=== PATIENT | male | born 1950 | race Caucasian/White ===

== ENCOUNTER 2023-08-25 16:39 | Emergency (ER) | payer MEDICARE, BC, SELFPAY ==
[2023-08-25 17:22] VITALS: BP 123/68; PULSE 93; RESP 26; TEMP 38.2; O2SAT 93; BMI 28.2
--- NOTE | 2023-08-25 17:44 | CRLHL7_ITS ---
For Patients: As a result of the Century Cures Act, medical imaging exams and procedure reports are released immediately into your electronic medical record. You may view this report before your referring provider. If you have questions, please contact your health care provider. INDICATION: Shortness of breath, fever, cough. TECHNIQUE: Portable AP chest. COMPARISON: None. FINDINGS: Right perihilar linear atelectasis. Left lung base opacity could be atelectasis or pneumonia. Chest otherwise negative. Dictated by Neptali Ricketts MD @ 08/25/2023 7:17:08 PM (Electronically Signed)
[2023-08-25 18:28] LABS: Basophils Percent Auto 0.4 % (0.0-3.0); Eosinophils Percent Auto 0.1 % (0.0-7.0); Hematocrit 39.6 % (37.0-53.0); Immature Granulocytes Pct Auto 0.4 %; Mean Corpuscular HGB Conc 33 gm/dL (32-36); Mean Corpuscular Hemoglobin 29 pg (26-34); Mean Corpuscular Volume 88 fL (80-100); Monocytes Percent Auto 8.9 % (0.0-11.0); Neutrophils Percent Auto 83.2 % (42.0-72.0); Platelet Count* 245 K/uL (140-440); RDW Coefficient of Variation % 15.9 % (11.5-15.5); Red Blood Count 4.51 m/uL (4.30-5.90); White Blood Count* 14.28 K/uL (4.50-11.00)
--- NOTE | 2023-08-25 18:30 | ED.GENADULT ---
HPI - General Adult General Date Seen: 08/25/23 Chief complaint: Fever Stated complaint: Short of breath Time Seen by Provider: 08/25/23 17:34 Source: patient Mode of arrival: ambulatory Limitations: no limitations History of Present Illness HPI narrative: Patient is a 73-year-old male here for evaluation of shortness of breath, cough, fever. He says symptoms originally started 2 days ago on Saturday with a sore throat and fatigue. He says he just kind of laid around yesterday but this morning thought he was feeling better. By noon though he developed a fever, he has had a cough and feels like his breathing is getting harder. He has not had chest pain. He quit smoking 6 and half years ago, says somebody mention something once about COPD but he does not do anything about it, does not take any medications. He does not drink. Lives independently. Took a COVID test at home and that was negative. Related Data Home Medications Medication Instructions Recorded Confirmed amlodipine 5 mg tablet 5 mg PO QDAY 06/12/22 02/27/23 apixaban 5 mg tablet (Eliquis) 5 mg PO BID 06/12/22 02/27/23 furosemide 40 mg tablet (Lasix) 40 mg PO QDAY 06/12/22 02/27/23 amiodarone 200 mg tablet 200 mg PO 07/05/22 02/27/23 diclofenac sodium 1 % topical gel g topical 02/27/23 02/27/23 doxycycline hyclate 100 mg tablet 100 mg PO BID 02/27/23 02/27/23 iron,carbonyl 65 mg-vitamin C 125 1 tab PO QDAY 02/27/23 02/27/23 mg tablet,delayed release (Vitron-C) prednisone 20 mg tablet 20 mg PO BID 02/27/23 02/27/23 Previous Rx's Medication Instructions Recorded benzonatate 100 mg capsule 100 mg PO TID PRN cough #30 caps 08/04/22 albuterol sulfate 90 mcg/actuation 2 puff inhalation Q4-6H PRN 02/09/23 aerosol inhaler shortness of breath or wheezing #1 packet Allergies Allergy/AdvReac Type Severity Reaction Status Date / Time No Known Drug Allergies Allergy Verified 02/27/23 15:51 Review of Systems Status of ROS: Reports: 10 or more systems reviewed and unremarkable except as noted in History and below [facility] Medical History COPD exacerbation ?J44.1 - Chronic obstructive pulmonary disease with (acute) exacerbation (ICD-10) Social History Smoking Status: Former smoker Do you use any of these nicotine containing products: None Second hand tobacco smoke exposure: No How often do you have a drink containing alcohol: never How often do you have six or more drinks on one occasion: Never AUDIT-C Alcohol total score: 0 Non-prescribed substance use: denies use service: No Exam Narrative: Exam Narrative: Vital signs as noted above. In general, an alert, well-appearing patient. Head: Normocephalic, atraumatic. Eyes: Pupils are equal reactive. Extraocular movements are full. Conjunctivae are normal. ENT: Mucous membranes are moist. Throat is normal. Neck: Supple without lymphadenopathy. Heart: Regular rate and rhythm. No murmur or rub. Lungs: No wheezing, good air movement bilaterally. Some coarse crackles are noted particularly in the left base. Abdomen: Soft and nontender. No organomegaly. Extremities: Well perfused. No edema. No calf tenderness. Pulses intact. Neurologic: Patient is alert and oriented to person and place. Speech is fluent. Face is symmetric. Moves all extremities equally. Affect: Normal. Skin: Warm and dry. Well perfused. Const: Vital Signs, click to edit/add: Vital Signs - 24 hr 08/25/23 17:22 08/25/23 19:30 Temperature 100.7 F H Pulse Rate [Pulse Oximeter] 93 73 Respiratory Rate 26 H 18 Blood Pressure [Ri ght Upper Arm] 123/68 137/83 Pulse Oximetry 93 96 Oxygen Delivery Me thod Room Air Documenting provider has reviewed patient's vital signs: yes Course Course ED Course: Patient is mildly tachypneic, O2 sats are 93% on room air. He does have a diagnosis listed of COPD exacerbation, I do not hear significant bronchospasm today. He does have a temp of a 100.7? here. I have repeated a COVID test but will also do a chest x-ray to evaluate for pneumonia, as well as blood work and a urine to look for signs of other bacterial infection, sepsis etcetera. Patient had a chest x-ray, appears to have some infiltrate at the left base to me. Final radiology read as follows:COMPARISON: None. FINDINGS: Right perihilar linear atelectasis. Left lung base opacity could be atelectasis or pneumonia. Chest otherwise negative. Overall, clinical picture here supports the diagnosis of pneumonia. He has crackles at the left base, white blood cell count is elevated at 14 with a left shift of 83% neutrophils. His CRP is elevated at 8. D-dimer was negative at less than 0.27. Metabolic panel shows mild hyponatremia with a sodium of 133, potassium of 3.3. Lactate is normal at 1.1. UA is negative. COVID here was negative as well. Patient is not significantly hypoxic, breathing easily. I think it is reasonable to send him home on oral antibiotics though I discussed that if he is worsening rather than improving he should come back. For high fevers, chills, vomiting, worsening difficulty breathing rate etcetera return to the emergency department. If not improving over the next few days, follow up with primary care. Doxycycline from [facility] prescribed. Vital Signs Vital signs: Initial Vital Signs Temperature 100.7 F H 08/25/23 17:22 Temperature Source Temporal Artery Scan 08/25/23 17:22 Pulse Rate 93 08/25/23 17:22 Pulse Rhythm Regular 08/25/23 17:22 Respiratory Rate 26 H 08/25/23 17:22 Blood Pressure 123/68 08/25/23 17:22 Blood Pressure Mean 86 08/25/23 17:22 Blood Pressure Position Sitting 08/25/23 17:22 Pulse Oximetry 93 08/25/23 17:22 Oxygen Delivery Method Room Air 08/25/23 17:22 Vital Signs Temperature 100.7 F H 08/25/23 17:22 Pulse Rate 93 08/25/23 17:22 Respiratory Rate 26 H 08/25/23 17:22 Blood Pressure 123/68 08/25/23 17:22 Pulse Oximetry 93 08/25/23 17:22 Oxygen Delivery Method Room Air 08/25/23 17:22 Temperature 100.7 F H 08/25/23 17:22 Pulse Rate 73 08/25/23 19:30 Respiratory Rate 18 08/25/23 19:30 Blood Pressure 137/83 08/25/23 19:30 Pulse Oximetry 96 08/25/23 19:30 Oxygen Delivery Method Room Air 08/25/23 17:22 Medical Decision Making Lab Data Labs: Lab Results 08/25/23 08/25/23 08/25/23 Range/Units 17:30 18:09 18:21 WBC 14.28 H (4.50-11.00) K/uL RBC 4.51 (4.30-5.90) m/uL Hgb 13.0 L (13.5-17.5) gm/dL Hct 39.6 (37.0-53.0) % MCV 88 (80-100) fL MCH 29 (26-34) pg MCHC 33 (32-36) gm/dL RDW Coeff of Justino 15.9 H (11.5-15.5) % Plt Count 245 (140-440) K/uL Neut % (Auto) 83.2 H (42.0-72.0) % Lymph % (Auto) 7.0 L (20-44) % Pickett % (Auto) 8.9 (0.0-11.0) % Eos % (Auto) 0.1 (0.0-7.0) % Baso % (Auto) 0.4 (0.0-3.0) % Neut # (Auto) 11.90 H (1.7-7.0) K/uL Lymph # (Auto) 1.00 (0.90-2.90) K/uL Pickett # (Auto) 1.30 H (0.00-0.90) K/UL Eos # (Auto) 0.00 (0.00-0.50) K/uL Baso # (Auto) 0.10 (0.00-0.30) K/uL Abs Immat Gran (auto) 0.10 (0.00-0.30) K/uL Imm/Tot Granulo (auto) 0.4 % D-Dimer Quant (PE/DVT) < 0.27 (0.00-0.50) ug/ml Sodium 133 L (135-149) mmol/L Potassium 3.3 L (3.6-5.1) mmol/L Chloride 102 (96-114) mmol/L Carbon Dioxide 24 (20-32) mmol/L Anion Gap 7 (7-15) mEq/L BUN 21 (7-30) mg/dL Creatinine 1.2 (0.5-1.5) mg/dL Estimated Creat Clear 63.74 Estimated GFR 64 ml/min Glucose 153 H (60-115) mg/dL Lactate (0.5-1.9) mmol/L Calcium 8.9 (8.4-10.6) mg/dL Total Bilirubin 0.7 (0.1-1.5) mg/dL Direct Bilirubin 0.0 (0.0-0.5) mg/dL AST 37 H (12-35) U/L ALT 18 (4-50) U/L Alkaline Phosphatase 80 (40-150) U/L C-Reactive Protein 8.2 H (0.5-1.0) mg/dL Total Protein 7.1 (6.0-8.3) g/dL Albumin 4.0 (3.3-5.0) g/dL Urine Color (Yellow) Urine Appearance (Clear) Urine pH (5.0-8.5) Ur Specific [place] (1.000-1.030) Urine Protein (Negative) Urine Glucose (UA) (Negative) Urine Ketones (Negative) Urine Blood (Negative) Urine Nitrite (Negative) Urine Bilirubin (Negative) Urine Urobilinogen (0.2-1.0) Ur Leukocyte Esterase (Negative) Urine RBC (0-2) Urine WBC (0-5) Ur Squamous Epith Cells (None-Few) Urine Bacteria (None) SARS-CoV-2 (PCR) Negative SARS-CoV-2 (Negative) Influenza Type A (PCR) Negative PCR FLU A (Negative) Influenza Type B (PCR) Negative PCR FLU B (Negative) RSV (PCR) Negative PCR RSV (Negative) 08/25/23 08/25/23 Range/Units 19:27 19:33 WBC (4.50-11.00) K/uL RBC (4.30-5.90) m/uL Hgb (13.5-17.5) gm/dL Hct (37.0-53.0) % MCV (80-100) fL MCH (26-34) pg MCHC (32-36) gm/dL RDW Coeff of Justino (11.5-15.5) % Plt Count (140-440) K/uL Neut % (Auto) (42.0-72.0) % Lymph % (Auto) (20-44) % Pickett % (Auto) (0.0-11.0) % Eos % (Auto) (0.0-7.0) % Baso % (Auto) (0.0-3.0) % Neut # (Auto) (1.7-7.0) K/uL Lymph # (Auto) (0.90-2.90) K/uL Pickett # (Auto) (0.00-0.90) K/UL Eos # (Auto) (0.00-0.50) K/uL Baso # (Auto) (0.00-0.30) K/uL Abs Immat Gran (auto) (0.00-0.30) K/uL Imm/Tot Granulo (auto) % D-Dimer Quant (PE/DVT) (0.00-0.50) ug/ml Sodium (135-149) mmol/L Potassium (3.6-5.1) mmol/L Chloride (96-114) mmol/L Carbon Dioxide (20-32) mmol/L Anion Gap (7-15) mEq/L BUN (7-30) mg/dL Creatinine (0.5-1.5) mg/dL Estimated Creat Clear Estimated GFR ml/min Glucose (60-115) mg/dL Lactate 1.1 (0.5-1.9) mmol/L Calcium (8.4-10.6) mg/dL Total Bilirubin (0.1-1.5) mg/dL Direct Bilirubin (0.0-0.5) mg/dL AST (12-35) U/L ALT (4-50) U/L Alkaline Phosphatase (40-150) U/L C-Reactive Protein (0.5-1.0) mg/dL Total Protein (6.0-8.3) g/dL Albumin (3.3-5.0) g/dL Urine Color Yellow (Yellow) Urine Appearance Clear (Clear) Urine pH 5.5 (5.0-8.5) Ur Specific [place] <= 1.005 (1.000-1.030) Urine Protein Negative (Negative) Urine Glucose (UA) Trace A (Negative) Urine Ketones Negative (Negative) Urine Blood Trace-lysed A (Negative) Urine Nitrite Negative (Negative) Urine Bilirubin Negative (Negative) Urine Urobilinogen 0.2 (0.2-1.0) Ur Leukocyte Esterase Negative (Negative) Urine RBC 0-2 (0-2) Urine WBC 0-2 (0-5) Ur Squamous Epith Cells Few (None-Few) Urine Bacteria Few A (None) SARS-CoV-2 (PCR) (Negative) Influenza Type A (PCR) (Negative) Influenza Type B (PCR) (Negative) RSV (PCR) (Negative) Discharge Plan Discharge Clinical Impression: Pneumonia Patient Disposition: Home, Self-Care Condition: Stable Instructions: Pneumonia (ED) Additional Instructions: Antibiotic as prescribed. If you are feeling worse, have new symptoms such as chills, vomiting, significant respiratory difficulties return to the emergency department at any time. Follow-up with your primary doctor if you are not improved over the next few days. Prescriptions: No Action amiodarone 200 mg tablet 200 mg PO Patient Comments: TAKE 1 TABLET (200 MG TOTAL) BY MOUTH DAILY. benzonatate 100 mg capsule 100 mg PO TID PRN (Reason: cough) Qty: 30 0RF albuterol sulfate 90 mcg/actuation HFA aerosol inhaler 2 puff inhalation Q4-6H PRN (Reason: shortness of breath or wheezing) Qty: 1 0RF Eliquis 5 mg tablet 5 mg PO BID furosemide [Lasix] 40 mg tablet 40 mg PO QDAY amlodipine 5 mg tablet 5 mg PO QDAY diclofenac sodium 1 % gel topical Vitron-C 65 mg iron- 125 mg tablet,delayed release (DR/EC) 1 tab PO QDAY doxycycline hyclate 100 mg tablet 100 mg PO BID prednisone 20 mg tablet 20 mg PO BID Follow Up/Referrals: Ayaka De La Paz MD [Primary Care Provider] - Stand Alone Forms: [facility] [employer] Info Instructions
[2023-08-25 18:32] LABS: Slide Review Reflex No
[2023-08-25 18:34] LABS: Chloride* 102 mmol/L (96-114); Potassium* 3.3 mmol/L (3.6-5.1); Sodium* 133 mmol/L (135-149)
[2023-08-25 18:36] LABS: PCR FLU A Negative PCR FLU A (Negative); PCR FLU B Negative PCR FLU B (Negative); PCR RSV Negative PCR RSV (Negative)
[2023-08-25 18:37] LABS: Creatinine* 1.2 mg/dL (0.5-1.5); Est. Creatinine Clearance* 63.74; Estimated Glomerular Filt Rate 64 ml/min
[2023-08-25 18:38] LABS: Alkaline Phosphatase* 80 U/L (40-150); Anion Gap 7 mEq/L (7-15); Aspartate Amino Transferase* 37 U/L (12-35); Bilirubin Total* 0.7 mg/dL (0.1-1.5); Blood Urea Nitrogen* 21 mg/dL (7-30); Calcium* 8.9 mg/dL (8.4-10.6); Carbon Dioxide* 24 mmol/L (20-32); Glucose* 153 mg/dL (60-115); Total Protein* 7.1 g/dL (6.0-8.3)
[2023-08-25 18:38] LABS: SARS PCR* Negative SARS-CoV-2 (Negative)
[2023-08-25 18:39] LABS: Alanine Aminotransferase* 18 U/L (4-50)
[2023-08-25 18:40] LABS: C Reactive Protein* 8.2 mg/dL (0.5-1.0)
[2023-08-25 18:45] LABS: D Dimer Quantitative* < 0.27 ug/ml (0.00-0.50)
[2023-08-25 19:30] VITALS: BP 137/83; PULSE 73; RESP 18; O2SAT 96
[2023-08-25 19:36] LABS: Lactate Sepsis w/Reflex* 1.1 mmol/L (0.5-1.9)
[2023-08-25 19:39] LABS: Appearance Urine Clear (Clear); Bilirubin Urine Negative (Negative); Blood Urine Trace-lysed (Negative); Color Urine Yellow (Yellow); Glucose Urine Trace (Negative); Ketones Urine Negative (Negative); Leukocyte Esterase Urine Negative (Negative); Nitrite Urine Negative (Negative); Protein Urine Negative (Negative); Specific Gravity Urine <= 1.005 (1.000-1.030); Urobilinogen Urine 0.2 (0.2-1.0); pH Urine 5.5 (5.0-8.5)
[2023-08-25 19:59] LABS: Bacteria Urine Few; RBC Urine 0-2 (0-2); Squamous Epithelial Cell Urine Few (None-Few); WBC Urine 0-2 (0-5)
== END 2023-08-25 20:23 | disposition home or self-care (01) ==
PROVIDERS: Emergency Provider Emergency Medicine; PCP Family Medicine
DX: J18.9 Pneumonia, unspecified organism (principal)
CPT/HCPCS: 36415; 71045; 80048; 80076; 81001; 83605; 85025; 85379; 86140; 87040; 87086; 87631; 99283; 99284

== ENCOUNTER 2024-01-22 13:21 | Emergency (ER) | payer MEDICARE, BC, SELFPAY ==
[2024-01-22] VITALS (21 sets, daily range): BP systolic 107–149; BP diastolic 78–108; PULSE 61–66; RESP 17; TEMP 36.1; O2SAT 90–100; BMI 25.0
--- NOTE | 2024-01-22 13:35 | CT_ITS ---
Patient: JAY URBINA Facility:?[facility] R[facility] Patient ID:?[id number] Site Patient ID:?[id number]. Site :?1950 Study:?CT-Head W/O STROKE PROTOCOL-01/22/2024 1:48:48 PM Ordering Physician:RASHAD Final Report: INDICATION: Severe nausea and vomiting TECHNIQUE: CT head without contrast. COMPARISON: None. FINDINGS: Examination is mildly degraded by patient motion. CSF spaces: Within normal limits for age. Brain parenchyma: The gallardo-white differentiation is normal. No sign of mass, hemorrhage, or midline shift. Skull base and calvarium: The visualized paranasal sinuses and mastoid air cells demonstrate no acute or significant findings. The visualized orbits are grossly unremarkable. No skull fractures. Atherosclerosis. IMPRESSION: Exam is mildly degraded by patient motion without evidence of acute intracranial bleed or mass effect. Please note that all CT scans at this facility use dose modulation, iterative reconstruction, and/or weight-based dosing when appropriate to reduce radiation dose to as low as reasonably achievable. Dictated by Fadi Felton MD @ 01/22/2024 1:56:56 PM ----- ADDENDUM ----- Results confirmed with Dr. Brown at 13:58 on 01/22/2024. Dictated by Fadi Felton MD @ Jan 22 2024 1:59PM Signed by:?Fadi Felton MD @01/22/2024 1:56:56 PM (Electronic Signature)
--- NOTE | 2024-01-22 13:39 | CT_ITS ---
Patient: JAY URBINA Facility:?[facility] R[facility] Patient ID:?[id number] Site Patient ID:?[id number]. Site :?1950 Study:?CT-Neck Angio W/ 95CC ISOVUE 370 STROKE PROTOCOL-01/22/2024 1:55:47 PM Ordering Physician:RASHAD Final Report: INDICATION: Acute stroke, severe nausea and vomiting. TECHNIQUE: CTA neck with contrast bolus tracking, 3D angiographic rendering using maximum intensity projection (MIP) and images permanently archived. FINDINGS: There is carotid atherosclerosis. There is no significant carotid artery stenosis or dissection. There is no significant vertebral artery stenosis or dissection. The soft tissues of the neck are within normal limits. The cervical spine is in normal alignment. Degenerative changes are noted in the cervical spine. Emphysematous changes are present in the lung apices. IMPRESSION: No significant carotid or vertebral artery stenosis or dissection. Please note that all CT scans at this facility use dose modulation, iterative reconstruction, and/or weight-based dosing when appropriate to reduce radiation dose to as low as reasonably achievable. Dictated by Juanjose Gayle MD @ 01/22/2024 3:14:31 PM Signed by:?Juanjose Gayle MD @01/22/2024 3:14:31 PM (Electronic Signature)
--- NOTE | 2024-01-22 13:39 | CT_ITS ---
Patient: JAY URBINA Facility:?[facility] R[facility] Patient ID:?[id number] Site Patient ID:?[id number]. Site :?1950 Study:?CT-Head Angio W/ 95CC ISOVUE 370 STROKE PROTOCOL-01/22/2024 1:55:17 PM Ordering Physician:RASHAD Final Report: INDICATION: Acute stroke, severe nausea and vomiting. TECHNIQUE: CTA head with contrast bolus tracking, 3D angiographic rendering using maximum intensity projection (MIP) and images permanently archived. FINDINGS: There is scattered intracranial atherosclerotic disease. There is normal opacification of the intracranial vasculature. There is no large vessel occlusion. No aneurysm is identified. IMPRESSION: No large vessel occlusion. Please note that all CT scans at this facility use dose modulation, iterative reconstruction, and/or weight-based dosing when appropriate to reduce radiation dose to as low as reasonably achievable. Dictated by Juanjose Gayle MD @ 01/22/2024 3:13:19 PM Signed by:?Juanjose Gayle MD @01/22/2024 3:13:19 PM (Electronic Signature)
[2024-01-22 13:44] LABS: Basophils Absolute Auto 0.01 K/uL (0.00-0.30); Basophils Percent Auto 0.1 % (0.0-3.0); Eosinophils Absolute Auto 0.06 K/uL (0.00-0.50); Eosinophils Percent Auto 0.6 % (0.0-7.0); Hematocrit 43.4 % (37.0-53.0); Hemoglobin* 14.3 gm/dL (13.5-17.5); Immature Granulocytes Abs Auto 0.04 K/uL (0.00-0.30); Immature Granulocytes Pct Auto 0.4 %; Lymphocytes Percent Auto 11.5 % (20-44); Mean Corpuscular HGB Conc 33 gm/dL (32-36); Mean Corpuscular Hemoglobin 29 pg (26-34); Mean Corpuscular Volume 87 fL (80-100); Monocytes Percent Auto 5.6 % (0.0-11.0); Neutrophils Percent Auto 81.8 % (42.0-72.0); Platelet Count* 263 K/uL (140-440); RDW Coefficient of Variation % 14.3 % (11.5-15.5); Red Blood Count 4.97 m/uL (4.30-5.90); White Blood Count* 10.71 K/uL (4.50-11.00)
[2024-01-22 13:49] LABS: Slide Review Reflex No
[2024-01-22 14:00] LABS: Troponin, Point-of-Care* 0.01 ng/ml (0.01-0.04)
[2024-01-22] MEDS: ONDANSETRON 2 MG/ML inj 4 MG IVP (14:21)
--- NOTE | 2024-01-22 14:21 | ED_ITS ---
HPI - General Adult General Date Seen: 01/22/24 Chief complaint: Weakness Stated complaint: shortness of breath, chest pain Time Seen by Provider: 01/22/24 13:27 Source: patient Mode of arrival: wheelchair Limitations: no limitations History of Present Illness HPI narrative: Patient is a 73-year-old male presenting to emergency department for severe shortness of breath, nausea, dizziness. She is here with his . He is having difficulty speak to being very nauseated and vomiting. She states that he has had dizziness in the past and was told he had vertigo. He had the Neena-Hallpike maneuver done which resolved his symptoms. They were not nearly as severe as they are today. She states he told her he has been feeling off all day but about an hour prior to arrival he was getting worsening dizziness then finally stated they need to come to the emergency department. Patient tells me he feels like the entire room has been spinning for the past hour any feels like he is falling to the right side. Denies weakness or numbness anywhere. Does have a history of AFib in as on Eliquis. While nursing staff was cleaning a IV and he had a large amount of emesis feeling roughly 2 emesis bags. Denies abdominal pain, chest pain, headache, diarrhea, constipation. Related Data Home Medications Medication Instructions Recorded Confirmed amlodipine 5 mg tablet 5 mg PO QDAY 06/12/22 02/27/23 apixaban 5 mg tablet (Eliquis) 5 mg PO BID 06/12/22 02/27/23 furosemide 40 mg tablet (Lasix) 40 mg PO QDAY 06/12/22 02/27/23 amiodarone 200 mg tablet 200 mg PO 07/05/22 02/27/23 diclofenac sodium 1 % topical gel g topical 02/27/23 02/27/23 doxycycline hyclate 100 mg tablet 100 mg PO BID 02/27/23 02/27/23 iron,carbonyl 65 mg-vitamin C 125 1 tab PO QDAY 02/27/23 02/27/23 mg tablet,delayed release (Vitron-C) prednisone 20 mg tablet 20 mg PO BID 02/27/23 02/27/23 Previous Rx's Medication Instructions Recorded benzonatate 100 mg capsule 100 mg PO TID PRN cough #30 caps 08/04/22 albuterol sulfate 90 mcg/actuation 2 puff inhalation Q4-6H PRN 02/09/23 aerosol inhaler shortness of breath or wheezing #1 packet meclizine 25 mg tablet 25 mg PO QID #40 tabs 01/22/24 ondansetron 4 mg disintegrating 4 mg PO Q6H #20 tabs 01/22/24 tablet Allergies Allergy/AdvReac Type Severity Reaction Status Date / Time No Known Drug Allergies Allergy Verified 01/22/24 13:57 Review of Systems Status of ROS: Reports: 10 or more systems reviewed and unremarkable except as noted in History and below [facility] Medical History COPD exacerbation ?J44.1 - Chronic obstructive pulmonary disease with (acute) exacerbation (ICD-10) Social History Smoking Status: Former smoker Do you use any of these nicotine containing products: None Second hand tobacco smoke exposure: No How often do you have a drink containing alcohol: never How often do you have six or more drinks on one occasion: Never AUDIT-C Alcohol total score: 0 Non-prescribed substance use: denies use service: No Exam Narrative: Exam Narrative: Const: Well-nourished, Well-developed, in mild distress, Eyes: PERRL, no conjunctival injection, and symmetrical lids HENT: Atraumatic external nose and ears. Moist mucous membranes. Neck: Symmetric, trachea midline, No thyromegaly. CVS: RRR, No murmurs or gallops. Peripheral pulses 2+ and equal in all extremities RESP: Unlabored respiratory effort. Clear to auscultation bilaterally. GI: Nontender/Nondistended, No rebound or guarding. MSK:Extremities w/o deformity, Normal Active ROM Skin: Warm, Dry. No rashes or lesions. Neuro: Normal Muscle tone, Cranial nerves 2-12 grossly intact, normal [id number], normal [id number], normal gait, normal strength 5/5 upper lower extremities bilaterally, normal sensation upper and lower extremities bilaterally, normal rapid alternating movements. Psych: Awake, Alert, & Oriented x3. Appropriate mood and affect. Of note full physical exam was completed after patient returned from CT and symptoms were improving Const: Vital Signs, click to edit/add: Vital Signs - 24 hr 01/22/24 13:22 01/22/24 13:32 01/22/24 13:37 Temperature 97.0 F L Pulse Rate Respiratory Rate Blood Pressure 123/78 Blood Pressure [Le ft Upper Arm] 107/78 Pulse Oximetry 96 Oxygen Delivery Me thod Room Air 01/22/24 14:00 01/22/24 14:02 01/22/24 14:12 Temperature Pulse Rate Respiratory Rate Blood Pressure 134/100 H 124/94 H 135/79 Blood Pressure [Le ft Upper Arm] Pulse Oximetry Oxygen Delivery Me thod 01/22/24 14:22 01/22/24 14:24 01/22/24 14:30 Temperature Pulse Rate 64 65 64 Respiratory Rate Blood Pressure 132/80 Blood Pressure [Le ft Upper Arm] Pulse Oximetry 100 98 91 Oxygen Delivery Me thod 01/22/24 14:31 01/22/24 14:41 01/22/24 14:45 Temperature Pulse Rate 65 64 63 Respiratory Rate Blood Pressure 138/91 H 139/82 Blood Pressure [Le ft Upper Arm] Pulse Oximetry 100 98 100 Oxygen Delivery Me thod 01/22/24 14:52 01/22/24 14:53 01/22/24 15:00 Temperature Pulse Rate 64 62 62 Respiratory Rate Blood Pressure 147/94 H Blood Pressure [Le ft Upper Arm] Pulse Oximetry 100 98 100 Oxygen Delivery Me thod 01/22/24 15:02 01/22/24 15:02 01/22/24 15:03 Temperature Pulse Rate 61 63 Respiratory Rate 17 Blood Pressure 149/108 H Blood Pressure [Le ft Upper Arm] Pulse Oximetry 100 100 Oxygen Delivery Me thod 01/22/24 16:02 Temperature Pulse Rate Respiratory Rate Blood Pressure Blood Pressure [Le ft Upper Arm] Pulse Oximetry 90 Oxygen Delivery Me thod Course Vital Signs Vital signs: Initial Vital Signs Temperature 97.0 F L 01/22/24 13:22 Temperature Source Temporal Artery Scan 01/22/24 13:22 Blood Pressure 107/78 01/22/24 13:22 Blood Pressure Mean 87 01/22/24 13:22 Blood Pressure Position Sitting 01/22/24 13:22 Oxygen Delivery Method Room Air 01/22/24 13:22 Vital Signs Temperature 97.0 F L 01/22/24 13:22 Blood Pressure 107/78 01/22/24 13:22 Oxygen Delivery Method Room Air 01/22/24 13:22 Temperature 97.0 F L 01/22/24 13:22 Pulse Rate 63 01/22/24 15:03 Respiratory Rate 17 01/22/24 15:02 Blood Pressure 149/108 H 01/22/24 15:02 Pulse Oximetry 90 01/22/24 16:02 Oxygen Delivery Method Room Air 01/22/24 13:22 Medications Administered Medications: Discontinued Medications Generic Name Dose Route Start Last Admin Trade Name Foster PRBarb Reason Stop Dose Admin Diazepam 2.5 mg 01/22/24 14:45 01/22/24 15:08 Diazepam 5 Mg/Ml Inj IV 01/22/24 14:46 2.5 mg ONCE ONE Administration Lactated Ringer's 1,000 mls @ 1,000 mls/hr 01/22/24 13:35 01/22/24 16:16 Lactated Ringers 1000 Ml IV 01/22/24 14:34 Infused .Q1H ONE Infusion Meclizine HCl 25 mg 01/22/24 14:12 01/22/24 14:28 Meclizine Hcl 25 Mg Tablet PO 01/22/24 14:13 25 mg ONCE ONE Administration Ondansetron HCl 4 mg 01/22/24 13:35 01/22/24 14:21 Ondansetron 2 Mg/Ml Inj IVP 01/22/24 13:36 4 mg ONCE ONE Administration Medical Decision Making MDM Narrative Medical decision making narrative: Patient is a 73-year-old male presenting for severe dizziness and nausea. He is also feeling very short of breath he states. While they were getting an IV placed he had 2 large emesis. After the bee got unchanged with quickly brought him to CT. While this could very well just be BPPV considering the severe nature of it a code stroke was called. I spoke to Dr. Brown and she is in agreement with the CT and also recommends doing a CTA head and neck right away also. This was ordered. Will also order co aches, CMP, COVID/flu/RSV, CBC, troponin, lipase, magnesium. Will also give 1 L of lactated Ringer's due to home she vomited. By time patient came back from CT he was feeling much better. States the dizziness is improving. Did receive 1 dose of Zofran. Is still having some mild dizziness but it states is nothing compared to when he initially came in. And his NIH stroke scale at this time is 0. Lab work returned showing no concerning abnormalities. Initial potassium slightly low at 3.3 but this is very unlikely to be causing his symptoms. Troponin shows no concerning abnormalities. EKG shows possible prolonged QT but I believe this read is due to the artifact seen in the 1st part of the EKG as the rest of EKG is not appear prolonged. He was given a dose of meclizine. I did speak to Dr. Brown again she is agreeable that we should do an MRI which was performed. She states that the MRI looks normal from her standpoint she is safe for discharge. MRI returned showing no concerning abnormalities. He is now asymptomatic and feels good enough to be discharged home. I will give him prescription for meclizine since he is going on a 10 day trip. I will give him 10 days worth. I explained to him how to take it and he states he understands. He will be discharged home. Of note patient's initial EKG did show concerns for prolonged QT on the read but this appeared to be all secondary to artifact and initial leads as I do not see the prolonged QT in the entire EKG. Repeat EKG was done prior to discharge that no longer shows this prolonged QT and he is safe to be [facility]. He was able to walk around without issue Lab Data Labs: Lab Results 01/22/24 01/22/24 01/22/24 Range/Units 13:33 13:35 13:58 WBC 10.71 (4.50-11.00) K/uL RBC 4.97 (4.30-5.90) m/uL Hgb 14.3 (13.5-17.5) gm/dL Hct 43.4 (37.0-53.0) % MCV 87 (80-100) fL MCH 29 (26-34) pg MCHC 33 (32-36) gm/dL RDW Coeff of Justino 14.3 (11.5-15.5) % Plt Count 263 (140-440) K/uL Neut % (Auto) 81.8 H (42.0-72.0) % Lymph % (Auto) 11.5 L (20-44) % Sierra % (Auto) 5.6 (0.0-11.0) % Eos % (Auto) 0.6 (0.0-7.0) % Baso % (Auto) 0.1 (0.0-3.0) % Neut # (Auto) 8.80 H (1.7-7.0) K/uL Lymph # (Auto) 1.20 (0.90-2.90) K/uL Sierra # (Auto) 0.60 (0.00-0.90) K/UL Eos # (Auto) 0.06 (0.00-0.50) K/uL Baso # (Auto) 0.01 (0.00-0.30) K/uL Abs Immat Gran (auto) 0.04 (0.00-0.30) K/uL Imm/Tot Granulo (auto) 0.4 % INR 2.83 H (0.91-1.10) APTT 36 H (23-33) Seconds Sodium 134 L (135-149) mmol/L Potassium (3.6-5.1) mmol/L Chloride (96-114) mmol/L Carbon Dioxide (20-32) mmol/L Anion Gap (7-15) mEq/L BUN (7-30) mg/dL Creatinine (0.5-1.5) mg/dL Estimated Creat Clear Estimated GFR ml/min Glucose (60-115) mg/dL Calcium (8.4-10.6) mg/dL Magnesium (1.5-2.6) mg/dL Total Bilirubin (0.1-1.5) mg/dL AST (12-35) U/L ALT (4-50) U/L Alkaline Phosphatase (40-150) U/L Total Protein (6.0-8.3) g/dL Albumin (3.3-5.0) g/dL Lipase (23-300) U/L SARS-CoV-2 (PCR) (Negative) Influenza Type A (PCR) (Negative) Influenza Type B (PCR) (Negative) RSV (PCR) (Negative) POC Troponin I 0.01 (0.01-0.04) ng/ml 01/22/24 01/22/24 01/22/24 Range/Units 13:58 13:58 13:58 WBC (4.50-11.00) K/uL RBC (4.30-5.90) m/uL Hgb (13.5-17.5) gm/dL Hct (37.0-53.0) % MCV (80-100) fL MCH (26-34) pg MCHC (32-36) gm/dL RDW Coeff of Justino (11.5-15.5) % Plt Count (140-440) K/uL Neut % (Auto) (42.0-72.0) % Lymph % (Auto) (20-44) % Sierra % (Auto) (0.0-11.0) % Eos % (Auto) (0.0-7.0) % Baso % (Auto) (0.0-3.0) % Neut # (Auto) (1.7-7.0) K/uL Lymph # (Auto) (0.90-2.90) K/uL Sierra # (Auto) (0.00-0.90) K/UL Eos # (Auto) (0.00-0.50) K/uL Baso # (Auto) (0.00-0.30) K/uL Abs Immat Gran (auto) (0.00-0.30) K/uL Imm/Tot Granulo (auto) % INR (0.91-1.10) APTT (23-33) Seconds Sodium 134 L (135-149) mmol/L Potassium 3.6 3.3 L (3.6-5.1) mmol/L Chloride 101 101 (96-114) mmol/L Carbon Dioxide 24 (20-32) mmol/L Anion Gap (7-15) mEq/L BUN (7-30) mg/dL Creatinine (0.5-1.5) mg/dL Estimated Creat Clear Estimated GFR ml/min Glucose (60-115) mg/dL Calcium (8.4-10.6) mg/dL Magnesium (1.5-2.6) mg/dL Total Bilirubin (0.1-1.5) mg/dL AST (12-35) U/L ALT (4-50) U/L Alkaline Phosphatase (40-150) U/L Total Protein (6.0-8.3) g/dL Albumin (3.3-5.0) g/dL Lipase (23-300) U/L SARS-CoV-2 (PCR) (Negative) Influenza Type A (PCR) (Negative) Influenza Type B (PCR) (Negative) RSV (PCR) (Negative) POC Troponin I (0.01-0.04) ng/ml 01/22/24 01/22/24 01/22/24 Range/Units 13:58 13:58 13:58 WBC (4.50-11.00) K/uL RBC (4.30-5.90) m/uL Hgb (13.5-17.5) gm/dL Hct (37.0-53.0) % MCV (80-100) fL MCH (26-34) pg MCHC (32-36) gm/dL RDW Coeff of Justino (11.5-15.5) % Plt Count (140-440) K/uL Neut % (Auto) (42.0-72.0) % Lymph % (Auto) (20-44) % Sierra % (Auto) (0.0-11.0) % Eos % (Auto) (0.0-7.0) % Baso % (Auto) (0.0-3.0) % Neut # (Auto) (1.7-7.0) K/uL Lymph # (Auto) (0.90-2.90) K/uL Sierra # (Auto) (0.00-0.90) K/UL Eos # (Auto) (0.00-0.50) K/uL Baso # (Auto) (0.00-0.30) K/uL Abs Immat Gran (auto) (0.00-0.30) K/uL Imm/Tot Granulo (auto) % INR (0.91-1.10) APTT (23-33) Seconds Sodium (135-149) mmol/L Potassium (3.6-5.1) mmol/L Chloride (96-114) mmol/L Carbon Dioxide 23 (20-32) mmol/L Anion Gap 9 10 (7-15) mEq/L BUN 20 20 (7-30) mg/dL Creatinine 1.3 (0.5-1.5) mg/dL Estimated Creat Clear Estimated GFR ml/min Glucose (60-115) mg/dL Calcium (8.4-10.6) mg/dL Magnesium (1.5-2.6) mg/dL Total Bilirubin (0.1-1.5) mg/dL AST (12-35) U/L ALT (4-50) U/L Alkaline Phosphatase (40-150) U/L Total Protein (6.0-8.3) g/dL Albumin (3.3-5.0) g/dL Lipase (23-300) U/L SARS-CoV-2 (PCR) (Negative) Influenza Type A (PCR) (Negative) Influenza Type B (PCR) (Negative) RSV (PCR) (Negative) POC Troponin I (0.01-0.04) ng/ml 01/22/24 01/22/24 01/22/24 Range/Units 13:58 13:58 13:58 WBC (4.50-11.00) K/uL RBC (4.30-5.90) m/uL Hgb (13.5-17.5) gm/dL Hct (37.0-53.0) % MCV (80-100) fL MCH (26-34) pg MCHC (32-36) gm/dL RDW Coeff of Justino (11.5-15.5) % Plt Count (140-440) K/uL Neut % (Auto) (42.0-72.0) % Lymph % (Auto) (20-44) % Sierra % (Auto) (0.0-11.0) % Eos % (Auto) (0.0-7.0) % Baso % (Auto) (0.0-3.0) % Neut # (Auto) (1.7-7.0) K/uL Lymph # (Auto) (0.90-2.90) K/uL Sierra # (Auto) (0.00-0.90) K/UL Eos # (Auto) (0.00-0.50) K/uL Baso # (Auto) (0.00-0.30) K/uL Abs Immat Gran (auto) (0.00-0.30) K/uL Imm/Tot Granulo (auto) % INR (0.91-1.10) APTT (23-33) Seconds Sodium (135-149) mmol/L Potassium (3.6-5.1) mmol/L Chloride (96-114) mmol/L Carbon Dioxide (20-32) mmol/L Anion Gap (7-15) mEq/L BUN (7-30) mg/dL Creatinine 1.3 (0.5-1.5) mg/dL Estimated Creat Clear 58.84 58.84 Estimated GFR 58 58 ml/min Glucose 114 (60-115) mg/dL Calcium (8.4-10.6) mg/dL Magnesium (1.5-2.6) mg/dL Total Bilirubin (0.1-1.5) mg/dL AST (12-35) U/L ALT (4-50) U/L Alkaline Phosphatase (40-150) U/L Total Protein (6.0-8.3) g/dL Albumin (3.3-5.0) g/dL Lipase (23-300) U/L SARS-CoV-2 (PCR) (Negative) Influenza Type A (PCR) (Negative) Influenza Type B (PCR) (Negative) RSV (PCR) (Negative) POC Troponin I (0.01-0.04) ng/ml 01/22/24 01/22/24 01/22/24 Range/Units 13:58 13:58 15:53 WBC (4.50-11.00) K/uL RBC (4.30-5.90) m/uL Hgb (13.5-17.5) gm/dL Hct (37.0-53.0) % MCV (80-100) fL MCH (26-34) pg MCHC (32-36) gm/dL RDW Coeff of Justino (11.5-15.5) % Plt Count (140-440) K/uL Neut % (Auto) (42.0-72.0) % Lymph % (Auto) (20-44) % Sierra % (Auto) (0.0-11.0) % Eos % (Auto) (0.0-7.0) % Baso % (Auto) (0.0-3.0) % Neut # (Auto) (1.7-7.0) K/uL Lymph # (Auto) (0.90-2.90) K/uL Sierra # (Auto) (0.00-0.90) K/UL Eos # (Auto) (0.00-0.50) K/uL Baso # (Auto) (0.00-0.30) K/uL Abs Immat Gran (auto) (0.00-0.30) K/uL Imm/Tot Granulo (auto) % INR (0.91-1.10) APTT (23-33) Seconds Sodium (135-149) mmol/L Potassium (3.6-5.1) mmol/L Chloride (96-114) mmol/L Carbon Dioxide (20-32) mmol/L Anion Gap (7-15) mEq/L BUN (7-30) mg/dL Creatinine (0.5-1.5) mg/dL Estimated Creat Clear Estimated GFR ml/min Glucose 117 H (60-115) mg/dL Calcium 9.1 9.0 (8.4-10.6) mg/dL Magnesium 1.7 (1.5-2.6) mg/dL Total Bilirubin 0.8 (0.1-1.5) mg/dL AST 30 (12-35) U/L ALT 16 (4-50) U/L Alkaline Phosphatase 106 (40-150) U/L Total Protein 6.7 (6.0-8.3) g/dL Albumin 3.9 (3.3-5.0) g/dL Lipase 45 (23-300) U/L SARS-CoV-2 (PCR) Negative SARS-CoV-2 (Negative) Influenza Type A (PCR) Negative PCR FLU A (Negative) Influenza Type B (PCR) Negative PCR FLU B (Negative) RSV (PCR) Negative PCR RSV (Negative) POC Troponin I (0.01-0.04) ng/ml Imaging Data CTA neck: Radiologist's impression: No significant carotid or vertebral artery stenosis or dissection. Please note that all CT scans at this facility use dose modulation, iterative reconstruction, and/or weight-based dosing when appropriate to reduce radiation dose to as low as reasonably achievable. Dictated by Juanjose Gayle MD @ 01/22/2024 3:14:31 PM CTA head: Radiologist's impression: No significant carotid or vertebral artery stenosis or dissection. Please note that all CT scans at this facility use dose modulation, iterative reconstruction, and/or weight-based dosing when appropriate to reduce radiation dose to as low as reasonably achievable. Dictated by Juanjose Gayle MD @ 01/22/2024 3:14:[address] scan - head: Radiologist's impression: Exam is mildly degraded by patient motion without evidence of acute intracranial bleed or mass effect. Please note that all CT scans at this facility use dose modulation, iterative reconstruction, and/or weight-based dosing when appropriate to reduce radiation dose to as low as reasonably achievable. Dictated by Fadi Felton MD @ 01/22/2024 1:56:56 PM ----- ADDENDUM ----- Results confirmed with Dr. Brown at 13:58 on 01/22/2024. Dictated by Fadi Felton MD @ Jan 22 2024 1:59PM MR Brain: Radiologist's impression: 1. No evidence of acute intracranial abnormality given artifact from patient motion. 2. Mild generalized cerebral volume loss, and mild chronic microangiopathy changes. Dictated by Miri Murguia MD @ 01/22/2024 4:59:45 PM ECG Data Attestation: I personally reviewed and interpreted this ECG as follows: Prior ECG tracings: available for review Interpretation: Normal sinus rhythm with a rate of 66 beats per minute, normal intervals, normal axis, no ST or T-wave abnormalities Discharge Plan Discharge Clinical Impression: Benign paroxysmal positional vertigo Qualifiers: Laterality: unspecified laterality Qualified Code(s): H81.10 - Benign paroxysmal vertigo, unspecified ear Patient Disposition: Home, Self-Care Condition: Improved Instructions: Benign Paroxysmal Positional Vertigo (ED) Additional Instructions: Take the meclizine as needed for dizziness. If he has noticed the dizziness is occurring frequently start taking it 4 times a day for the duration of his trip. Follow-up with your primary care provider when he return if he nausea or still having symptoms. Return to emergency department for new or worsening symptoms Prescriptions: New meclizine 25 mg tablet 25 mg PO QID Qty: 40 0RF ondansetron 4 mg tablet,disintegrating 4 mg PO Q6H Qty: 20 0RF No Action amiodarone 200 mg tablet 200 mg PO Patient Comments: TAKE 1 TABLET (200 MG TOTAL) BY MOUTH DAILY. benzonatate 100 mg capsule 100 mg PO TID PRN (Reason: cough) Qty: 30 0RF albuterol sulfate 90 mcg/actuation HFA aerosol inhaler 2 puff inhalation Q4-6H PRN (Reason: shortness of breath or wheezing) Qty: 1 0RF Eliquis 5 mg tablet 5 mg PO BID furosemide [Lasix] 40 mg tablet 40 mg PO QDAY amlodipine 5 mg tablet 5 mg PO QDAY diclofenac sodium 1 % gel topical Vitron-C 65 mg iron- 125 mg tablet,delayed release (DR/EC) 1 tab PO QDAY doxycycline hyclate 100 mg tablet 100 mg PO BID prednisone 20 mg tablet 20 mg PO BID Follow Up/Referrals: Ayaka De La Paz MD [Primary Care Provider] - Stand Alone Forms: [place] [facility] Info Instructions
[2024-01-22] MEDS: LACTATED RINGERS 1000 ML 1,000 ML IV (14:27)
[2024-01-22] MEDS: MECLIZINE HCL 25 MG TABLET PO (14:28)
[2024-01-22 14:36] LABS: Albumin* 3.9 g/dL (3.3-5.0); Chloride* 101 mmol/L (96-114); Sodium* 134 mmol/L (135-149)
[2024-01-22 14:37] LABS: Potassium* 3.3 mmol/L (3.6-5.1)
[2024-01-22 14:38] LABS: Creatinine* 1.3 mg/dL (0.5-1.5); Est. Creatinine Clearance* 58.84; Estimated Glomerular Filt Rate 58 ml/min
[2024-01-22 14:39] LABS: Alanine Aminotransferase* 16 U/L (4-50); Alkaline Phosphatase* 106 U/L (40-150); Anion Gap 10 mEq/L (7-15); Aspartate Amino Transferase* 30 U/L (12-35); Bilirubin Total* 0.8 mg/dL (0.1-1.5); Blood Urea Nitrogen* 20 mg/dL (7-30); Carbon Dioxide* 23 mmol/L (20-32); Glucose* 117 mg/dL (60-115); Lipase* 45 U/L (23-300); Total Protein* 6.7 g/dL (6.0-8.3)
[2024-01-22 14:40] LABS: Magnesium* 1.7 mg/dL (1.5-2.6)
--- NOTE | 2024-01-22 14:42 | MR_ITS ---
Patient: JAY URBINA Facility:?[facility] Patient ID:?[id number] Site Patient ID:?[id number]. Site :?[id number] Study:?MRI-Head W/O-01/22/2024 4:31:43 PM Ordering Physician:MATT Final Report: Indication: Dizziness Technique: Multiplanar, multisequence MRI of the brain obtained without contrast. Comparison: Same-day CT head and CTA head/neck Findings: There is artifact from patient motion, degrading image quality. The axial T2 sequences were repeated multiple times due to patient motion. The ventricles and cortical sulci appear stable in configuration. No midline shift or mass effect, hydrocephalus or herniation. No acute/subacute ischemia, intracranial hemorrhage, or abnormal extra-axial fluid collection. Mild generalized cerebral volume loss. Scattered FLAIR hyperintense foci throughout the supra and infratentorial white matter, typical of chronic microangiopathy. Midline structures are unremarkable. Major expected intracranial flow voids are preserved where visualized. No suspicious bone marrow lesion. No paranasal sinus air-fluid level or mastoid effusion. Unremarkable orbits. Impression: 1. No evidence of acute intracranial abnormality given artifact from patient motion. 2. Mild generalized cerebral volume loss, and mild chronic microangiopathy changes. Dictated by Miri Murguia MD @ 01/22/2024 4:59:45 PM Signed by:?Miri Murguia MD @01/22/2024 4:59:45 PM (Electronic Signature)
[2024-01-22 15:05] LABS: INR 2.83 (0.91-1.10); Partial Thromboplastin Time* 36 Seconds (23-33); Prothrombin Time 31.9 Seconds
[2024-01-22] MEDS: diazePAM 5 MG/ML inj 2.5 MG IV (15:08)
[2024-01-22 15:44] LABS: Chloride* 101 mmol/L (96-114)
[2024-01-22 15:45] LABS: Potassium* 3.6 mmol/L (3.6-5.1); Sodium* 134 mmol/L (135-149)
[2024-01-22 15:47] LABS: Creatinine* 1.3 mg/dL (0.5-1.5); Est. Creatinine Clearance* 58.84; Estimated Glomerular Filt Rate 58 ml/min
[2024-01-22 15:48] LABS: Anion Gap 9 mEq/L (7-15); Blood Urea Nitrogen* 20 mg/dL (7-30); Calcium* 9.1 mg/dL (8.4-10.6); Carbon Dioxide* 24 mmol/L (20-32); Glucose* 114 mg/dL (60-115)
[2024-01-22 16:46] LABS: PCR FLU A Negative PCR FLU A (Negative); PCR FLU B Negative PCR FLU B (Negative); PCR RSV Negative PCR RSV (Negative); SARS PCR* Negative SARS-CoV-2 (Negative)
== END 2024-01-22 17:30 | disposition home or self-care (01) ==
PROVIDERS: Emergency Provider Student in an Organized Health Care Education/Training Program; PCP Family Medicine
DX: H81.10 Benign paroxysmal vertigo, unspecified ear (principal)
CPT/HCPCS: 36415; 70450; 70496; 70498; 70551; 80048; 80053; 83690; 83735; 84484; 85025; 85610; 85730; 87631; 93005; 99283; 99284; 99291; A9270; J2405; J3360; J7120; Q9967